=== PATIENT | male | born 1990 | race American Indian/Alaskan Native ===

== ENCOUNTER 2016-09-18 13:57 | Emergency (ER) | payer OTHER ==
[2016-09-18] MEDS ORDERED: XYLOCAINE 1% MPF 5 mL ONE (20:16)
[2016-09-18 20:22] VITALS: BP 128/91
--- NOTE | 2016-09-18 21:10 | Emergency Department Report ---
Abscess Boil HPI - HPI Chief Complaint: Skin/Abscess/Foreign Body Stated Complaint: FLU SX/PAIN UNDER RT ARM Time Seen by Provider: 09/18/16 19:53 Duration: 2 Days Location: Upper Extremity Severity: Mild History: Yes Pain, No Fever, No Purulent Drainage, No Numbness, No Foreign Body , No Previous History, No Insect Bite HPI: 26 y/o male with abscess noted to the right arm pit x 2 days Home Medications: Previous Rx's Medication Instructions Recorded Last Taken Type Cephalexin [Keflex] 500 mg PO Q12HR #14 cap 09/18/16 Unknown Rx Ibuprofen [Motrin] 800 mg PO Q8HR PRN #15 tablet 09/18/16 Unknown Rx Sulfamethoxazole/Trimethoprim 1 each PO BID #14 tablet 09/18/16 Unknown Rx [Bactrim DS TAB] Allergies/Adverse Reactions: Allergies Allergy/AdvReac Type Severity Reaction Status Date / Time shellfish derived AdvReac Unknown Verified 02/11/14 19:38 ED Review of Systems ROS: Stated complaint: FLU SX/PAIN UNDER RT ARM Other details as noted in HPI Constitutional: denies: chills, fever Eyes: denies: eye pain, eye discharge, vision change ENT: denies: ear pain, throat pain Respiratory: denies: cough, shortness of breath, wheezing Cardiovascular: denies: chest pain, palpitations Endocrine: no symptoms reported Gastrointestinal: denies: abdominal pain, nausea, diarrhea Genitourinary: denies: urgency, dysuria Musculoskeletal: denies: back pain, joint swelling, arthralgia Skin: rash (abscess to the right armpit). denies: lesions Neurological: denies: headache, weakness, paresthesias Psychiatric: denies: anxiety, depression Hematological/Lymphatic: denies: easy bleeding, easy bruising ED Past Medical Hx - Past Medical History Previous Medical History?: Yes Hx HIV: Yes - Surgical History Past Surgical History?: No - Social History Smoking Status: Current Every Day Smoker Substance Use Type: Alcohol - Medications Home Medications: Home Medications Medication Instructions Recorded Confirmed Last Taken Type Cephalexin [Keflex] 500 mg PO Q12HR #14 cap 09/18/16 Unknown Rx Ibuprofen [Motrin] 800 mg PO Q8HR PRN #15 tablet 09/18/16 Unknown Rx Sulfamethoxazole/Trimethoprim 1 each PO BID #14 tablet 09/18/16 Unknown Rx [Bactrim DS TAB] ED Abscess Boil Physical Exam - Exam General: Vital signs noted. No distress. Alert and acting appropriately. Size: 1 cm Exam: Yes Tenderness, Yes Normal Neurologic Exam, Yes Normal Circulation, No Fluctuance, No Surrounding Cellulites/Erythema, No Lymphangitis, No Crepitation , No Heart Murmur Exam: unable to I&D .no drainage after attempt I & D Note - I & D Note I & D Note: anethestic with 5ml of 1% lidocaine .no drainage from site ED Course Vital Signs 09/18/16 09/18/16 14:03 20:20 Temperature 99.1 F 99.0 F Pulse Rate 113 H 119 H Respiratory 18 20 Rate Blood Pressure 138/94 Blood Pressure 128/91 [Right] O2 Sat by Pulse 100 100 Oximetry Critical care attestation.: If time is entered above; I have spent that time in minutes in the direct care of this critically ill patient, excluding procedure time. ED Medical Decision Making - Medical Decision Making abscess to right armpit unable to I&D ED Disposition Clinical Impression: Abscess Disposition: DISCHARGED TO HOME OR SELFCARE Is pt being admited?: No Does the pt Need Aspirin: No Condition: Stable Instructions: Abscess (ED) Prescriptions: Sulfamethoxazole/Trimethoprim [Bactrim DS TAB] 1 each PO BID #14 tablet Cephalexin [Keflex] 500 mg PO Q12HR #14 cap Ibuprofen [Motrin] 800 mg PO Q8HR PRN #15 tablet PRN Reason: Pain Forms: Work/School Release Form(ED) Time of Disposition: 21:12
== END 2016-09-18 21:22 | disposition home or self-care (01) ==
LOC: ED 13:57
DX: L02.413 Cutaneous abscess of right upper limb (principal); F17.200 Nicotine dependence, unspecified, uncomplicated; Z91.013 Allergy to seafood

== ENCOUNTER 2016-09-20 18:27 | Emergency (ER) | payer SELFPAY ==
[2016-09-20 18:42] VITALS: BP 129/72
[2016-09-20] MEDS ORDERED: NORCO 5/325 ONE (22:09)
[2016-09-20] MEDS ORDERED: XYLOCAINE 1%/ EPI 1:100,000 INFILTRATI ONE (22:10)
[2016-09-20] MEDS ORDERED: NORCO 5/325 PO ONE ×2 (22:39→23:13)
[2016-09-20] MEDS ORDERED: XYLOCAINE 1%/ EPI 1:100,000 INFILTRATI NR (23:00)
--- NOTE | 2016-09-20 23:12 | Emergency Department Report ---
- General Chief complaint: Wound/Laceration Stated complaint: UNDER ARM BOIL Time Seen by Provider: 09/20/16 23:08 Source: patient Mode of arrival: Ambulatory Limitations: No Limitations - History of Present Illness Initial comments: 26-year-old HIV positive male comes back for full to his right axillary has gotten larger. Patient was seen 3 days ago and Keflex and Bactrim for boil that was under his right axillary arm.Patient reports that he has gotten larger and more painful. He denies any fever or chills denies any nausea vomiting just reports that it is very painful to put his arm down. complaint: abscess/boil - Related Data Previous Rx's Medication Instructions Recorded Last Taken Type Cephalexin [Keflex] 500 mg PO Q12HR #14 cap 09/18/16 Unknown Rx Ibuprofen [Motrin] 800 mg PO Q8HR PRN #15 tablet 09/18/16 Unknown Rx Sulfamethoxazole/Trimethoprim 1 each PO BID #14 tablet 09/18/16 Unknown Rx [Bactrim DS TAB] Allergies Allergy/AdvReac Type Severity Reaction Status Date / Time shellfish derived AdvReac Unknown Verified 02/11/14 19:38 Abscess Boil HPI - HPI Chief Complaint: Wound/Laceration Stated Complaint: UNDER ARM BOIL Time Seen by Provider: 09/20/16 23:08 Home Medications: Previous Rx's Medication Instructions Recorded Last Taken Type Cephalexin [Keflex] 500 mg PO Q12HR #14 cap 09/18/16 Unknown Rx Ibuprofen [Motrin] 800 mg PO Q8HR PRN #15 tablet 09/18/16 Unknown Rx Sulfamethoxazole/Trimethoprim 1 each PO BID #14 tablet 09/18/16 Unknown Rx [Bactrim DS TAB] Allergies/Adverse Reactions: Allergies Allergy/AdvReac Type Severity Reaction Status Date / Time shellfish derived AdvReac Unknown Verified 02/11/14 19:38 ED Review of Systems ROS: Stated complaint: UNDER ARM BOIL Other details as noted in HPI Constitutional: see HPI. denies: chills, fever Skin: lesions ED Past Medical Hx - Past Medical History Hx HIV: Yes - Social History Smoking Status: Unknown if ever smoked Substance Use Type: None - Medications Home Medications: Home Medications Medication Instructions Recorded Confirmed Last Taken Type Cephalexin [Keflex] 500 mg PO Q12HR #14 cap 01/25/17 Unknown Rx Ibuprofen [Motrin] 800 mg PO Q8HR PRN #15 tablet 09/18/16 Unknown Rx Sulfamethoxazole/Trimethoprim 1 each PO BID #14 tablet 09/18/16 Unknown Rx [Bactrim DS TAB] ED Physical Exam - General Limitations: No Limitations General appearance: alert, in no apparent distress - Head Head exam: Present: atraumatic, normocephalic - Skin Skin exam: Present: warm, dry, erythema - Expanded Skin Exam Expanded Type of lesion: Present: abscess Distribution of rash: other (right axillary) Description of rash: Present: fluctuant, indurated ED Course Vital Signs 09/20/16 18:38 Temperature 98.2 F Pulse Rate 107 H Respiratory 18 Rate Blood Pressure 129/72 O2 Sat by Pulse 100 Oximetry - I & D Right Arm Blade Size: 11 I & D Procedure: betadine prep, sterile drapes applied, sterile dressing applied , gauze wick placed Progress: Patient tolerated procedure well. ED Medical Decision Making - Medical Decision Making Patient's been evaluated by this provider. Discussed with patient that we'll need to incision and drain this abscess under his right axillary procedure was completed. Given patient a [place] prior to the procedure I will give patient a [place] 5/325 prior to discharge. Discussed with patient that he'll need to return in 48 hours to have the packing removed and repacked. Discussed the patient that he'll need to complete all antibiotics and use ibuprofen for pain patient verbalized understanding. Critical care attestation.: If time is entered above; I have spent that time in minutes in the direct care of this critically ill patient, excluding procedure time. ED Disposition Clinical Impression: Abscess Disposition: DISCHARGED TO HOME OR SELFCARE Is pt being admited?: No Does the pt Need Aspirin: No Condition: Stable Instructions: Abscess (ED) Additional Instructions: You need to complete all antibiotics as prescribed. Take ibuprofen for pain as prescribed. You need to return to the emergency room in 48 hours for repacking evaluation of the abscess. You need to return sooner if you develop fever chills the area becomes inflamed. Referrals: PRIMARY MD TATA [Primary Care Provider] - 3-5 Days MANISHA MCMANUS MD [Staff Physician] - 3-5 Days Forms: Work/School Release Form(ED)
== END 2016-09-20 23:17 | disposition home or self-care (01) ==
LOC: ED 18:27
DX: L02.411 Cutaneous abscess of right axilla (principal); Z21 Asymptomatic human immunodeficiency virus [HIV] infection status; Z91.013 Allergy to seafood

== ENCOUNTER 2016-09-22 12:36 | Emergency (ER) | payer SELFPAY ==
--- NOTE | 2016-09-22 17:03 | Emergency Department Report ---
- General Chief complaint: Skin/Abscess/Foreign Body Stated complaint: FOLLOW UP / REMOVE PACKING Time Seen by Provider: 09/22/16 16:27 Source: patient Mode of arrival: Ambulatory Limitations: No Limitations - History of Present Illness Initial comments: 6-year-old male right axillary abscess drained 2 days ago had wound packed presenting for wound check and packing removal. patient states he is taking antibiotics denies any fever or chills. Onset/Timin -: days(s) Location: RUE Severity: moderate Severity scale (0 -10): 5 Quality: aching Consistency: constant - Related Data Previous Rx's Medication Instructions Recorded Last Taken Type Cephalexin [Keflex] 500 mg PO Q12HR #14 cap 09/18/16 Unknown Rx Ibuprofen [Motrin] 800 mg PO Q8HR PRN #15 tablet 09/18/16 Unknown Rx Sulfamethoxazole/Trimethoprim 1 each PO BID #14 tablet 09/18/16 Unknown Rx [Bactrim DS TAB] Allergies Allergy/AdvReac Type Severity Reaction Status Date / Time shellfish derived AdvReac Unknown Verified 02/11/14 19:38 Abscess Boil HPI - HPI Chief Complaint: Skin/Abscess/Foreign Body Stated Complaint: FOLLOW UP / REMOVE PACKING Time Seen by Provider: 09/22/16 16:27 Home Medications: Previous Rx's Medication Instructions Recorded Last Taken Type Cephalexin [Keflex] 500 mg PO Q12HR #14 cap 09/18/16 Unknown Rx Ibuprofen [Motrin] 800 mg PO Q8HR PRN #15 tablet 09/18/16 Unknown Rx Sulfamethoxazole/Trimethoprim 1 each PO BID #14 tablet 09/18/16 Unknown Rx [Bactrim DS TAB] Allergies/Adverse Reactions: Allergies Allergy/AdvReac Type Severity Reaction Status Date / Time shellfish derived AdvReac Unknown Verified 02/11/14 19:38 ED Review of Systems ROS: Stated complaint: FOLLOW UP / REMOVE PACKING Other details as noted in HPI ED Past Medical Hx - Past Medical History Hx HIV: Yes - Social History Smoking Status: Current Every Day Smoker Substance Use Type: None - Medications Home Medications: Home Medications Medication Instructions Recorded Confirmed Last Taken Type Cephalexin [Keflex] 500 mg PO Q12HR #14 cap 09/18/16 Unknown Rx Ibuprofen [Motrin] 800 mg PO Q8HR PRN #15 tablet 09/18/16 Unknown Rx Sulfamethoxazole/Trimethoprim 1 each PO BID #14 tablet 09/18/16 Unknown Rx [Bactrim DS TAB] ED Physical Exam - General Limitations: No Limitations General appearance: alert, in no apparent distress - Head Head exam: Present: atraumatic, normocephalic - Eye Eye exam: Present: normal appearance - ENT ENT exam: Present: mucous membranes moist - Neck Neck exam: Present: normal inspection - Respiratory Respiratory exam: Present: normal lung sounds bilaterally. Absent: respiratory distress - Cardiovascular Cardiovascular Exam: Present: regular rate, normal rhythm. Absent: systolic murmur, diastolic murmur, rubs, gallop - GI/Abdominal GI/Abdominal exam: Present: soft, normal bowel sounds - Rectal Rectal exam: Present: deferred - Extremities Exam Extremities exam: Present: normal inspection - Expanded Upper Extremity Exam Right Upper Arm exam: Present: other (right axillary abscess site, iodoform gauze tube sticking out) - Back Exam Back exam: Present: normal inspection - Neurological Exam Neurological exam: Present: alert, oriented X3 - Psychiatric Psychiatric exam: Present: normal affect, normal mood - Skin Skin exam: Present: warm, dry, intact, normal color. Absent: rash ED Course Vital Signs 09/22/16 12:41 Temperature 98.7 F Pulse Rate 98 H Respiratory 18 Rate Blood Pressure 94/71 O2 Sat by Pulse 100 Oximetry ED Medical Decision Making - Medical Decision Making A/P: Wound check, packing removal 1-packing removed approximately 14 inches of packing. Wound site clean, minimal purulent drainage, no evidence of cellulitis. Area soft to touch minimal to no induration 2-advised patient only to return to the ED if he experiences reaccumulation of abscess, fever or chills, heavy bleeding from site. 3-patient states he is taking his antibiotics. Critical care attestation.: If time is entered above; I have spent that time in minutes in the direct care of this critically ill patient, excluding procedure time. ED Disposition Clinical Impression: Visit for wound check Disposition: DISCHARGED TO HOME OR SELFCARE Is pt being admited?: No Does the pt Need Aspirin: No Condition: Stable Instructions: Acute Wound Care (ED), Incision and Drainage (ED) Forms: Work/School Release Form(ED) Time of Disposition: 17:02
[2016-09-22 17:21] VITALS: BP 117/69
== END 2016-09-22 17:19 | disposition home or self-care (01) ==
LOC: ED 12:36
DX: Z48.02 Encounter for removal of sutures (principal); Z21 Asymptomatic human immunodeficiency virus [HIV] infection status; F17.200 Nicotine dependence, unspecified, uncomplicated; Z91.013 Allergy to seafood

== ENCOUNTER 2016-12-04 05:55 | Emergency (ER) | payer SELFPAY ==
--- NOTE | 2016-12-04 07:51 | Emergency Department Report ---
HPI - General Chief Complaint: Upper Respiratory Infection Time Seen by Provider: 12/04/16 07:37 - HPI HPI: Patient here reports that he's been having cough and nasal congestion and now with coughing or chest congestion. Denies any shortness of breath or chest pain. He is HIV positive and did not have a ID specialist. He used to go to [facility] but he hasn't gone for a while and he stopped taking medication and that they give to him because was making him sick. Denies any nausea vomiting or fever or chills. He said he is having generalized body aches at 7 out of 10 she said he's been trying [id number] medication but is not helping. He also reports headache at 3 out of 10 that comes and goes. ED Past Medical Hx - Past Medical History Previous Medical History?: Yes Hx HIV: Yes - Surgical History Past Surgical History?: No - Family History Family history: hypertension - Social History Smoking Status: Former Smoker Substance Use Type: None - Medications Home Medications: Home Medications Medication Instructions Recorded Confirmed Last Taken Type Albuterol Sulfate [Ventolin HFA] 2 puff IH Q4H PRN #1 hfa.aer.ad 12/04/16 Unknown Rx Cetirizine HCl [ZyrTEC] 10 mg PO QDAY #14 capsule 12/04/16 Unknown Rx Fluticasone [Flonase] 1 spray NS QDAY #1 bottle 12/04/16 Unknown Rx Levofloxacin [Levaquin] 750 mg PO QDAY #10 tablet 12/04/16 Unknown Rx guaiFENesin DM [Robitussin Dm] 10 ml PO Q6HR PRN #200 udc 12/04/16 Unknown Rx ED Review of Systems ROS: Stated complaint: CHEST PAIN/FLU SYM Other details as noted in HPI Comment: All other systems reviewed and negative Constitutional: chills. denies: weakness Eyes: denies: eye discharge ENT: congestion. denies: ear pain, throat pain Respiratory: cough. denies: shortness of breath, SOB with exertion, SOB at rest , stridor, wheezing Cardiovascular: denies: chest pain, palpitations, edema, syncope Gastrointestinal: denies: nausea, vomiting Musculoskeletal: myalgia. denies: back pain Skin: denies: rash Neurological: headache. denies: numbness, paresthesias, confusion, abnormal gait, vertigo Physical Exam - Physical Exam Vital Signs: Vital Signs 12/04/16 06:01 Temperature 98.7 F Pulse Rate 105 H Respiratory 18 Rate Blood Pressure 135/80 O2 Sat by Pulse 99 Oximetry Vital Signs 12/04/16 12/04/16 12/04/16 06:01 08:12 08:25 Temperature 98.7 F Pulse Rate 105 H Pulse Rate [ 103 H 106 H Posterior Bilateral Throughout] Respiratory 18 Rate Respiratory 18 18 Rate [Posterior Bilateral Throughout] Blood Pressure 135/80 Blood Pressure [Left] O2 Sat by Pulse 99 Oximetry 12/04/16 12/04/16 12/04/16 08:27 10:15 10:33 Temperature Pulse Rate 82 99 H Pulse Rate [ Posterior Bilateral Throughout] Respiratory 18 22 Rate Respiratory Rate [Posterior Bilateral Throughout] Blood Pressure Blood Pressure 128/81 [Left] O2 Sat by Pulse 97 98 Oximetry General: This is a 26-year-old male well-nourished well-developed in no acute distress and nontoxic in appearance Physical Exam: Head: Normocephalic atraumatic Mouth: Moist, no pharyngeal exudate or erythema. Uvula is midline and oral airway is patent. No facial swelling. No peritonsillar abscesses. Nose: Congested with erythema to mucosa. Clear Drainage. Maxillary and frontal sinuses nontender to palpate Neck: Supple, no C-spine tenderness, no tracheal deviation. Nontender to palpate. no adenopathy Ears: Bilateral TMs congested without erythema. Bilateral EAC without any redness swelling or drainage. Abdomen: Soft, nontender to palpate in all quadrants, normal bowel sounds in all quadrant and negative CVA tenderness bilaterally. Eyes: Bilateral pupils equal and reactive to light, bilateral EOM intact. Bilateral sclera and conjunctiva without injection. Normal accommodation. No Lungs: Clear to auscultate bilaterally no rhonchi wheezes or rales. Normal work of breathing . No use of accessory muscle extremity; No CCE. +2 pulses. No neurovascular compromise Cardiovascular: S1-S2, tachycardia @ 105 ,regular rhythm. No murmurs. Skin: clean Dry and intact no rash no lesions Psych: Normal mood and behavior ED Course Vital Signs 12/04/16 06:01 Temperature 98.7 F Pulse Rate 105 H Respiratory 18 Rate Blood Pressure 135/80 O2 Sat by Pulse 99 Oximetry Vital Signs 12/04/16 12/04/16 12/04/16 06:01 08:12 08:25 Temperature 98.7 F Pulse Rate 105 H Pulse Rate [ 103 H 106 H Posterior Bilateral Throughout] Respiratory 18 Rate Respiratory 18 18 Rate [Posterior Bilateral Throughout] Blood Pressure 135/80 O2 Sat by Pulse 99 Oximetry 12/04/16 08:27 Temperature Pulse Rate 82 Pulse Rate [ Posterior Bilateral Throughout] Respiratory Rate Respiratory Rate [Posterior Bilateral Throughout] Blood Pressure O2 Sat by Pulse Oximetry - Reevaluation(s) Reevaluation #1: 12/04/16 09:47 Patient stable throughout ED course. He received soft and 3.375 g IV in 1 L of IV fluid. Lab work. Chest x-ray revealed patient has early lingular pna. He received Xopenex and Atrovent nebulizer treatment in emergency room. ED Medical Decision Making - Lab Data Result diagrams: 12/04/16 08:38 12/04/16 08:38 Lab Results 12/04/16 12/04/16 12/04/16 Range/Units 08:38 08:38 08:38 WBC 14.6 H (4.5-11.0) K/mm3 RBC 5.11 H (3.65-5.03) M/mm3 Hgb 13.3 (11.8-15.2) gm/dl Hct 40.7 (35.5-45.6) % MCV 80 L (84-94) fl MCH 26 L (28-32) pg MCHC 33 (32-34) % RDW 15.9 H (13.2-15.2) % Plt Count 220 (140-440) K/mm3 Lymph # Information Services Manager Sodium 132 L (137-145) mmol/L Potassium 4.3 (3.6-5.0) mmol/L Chloride 96.2 L (98-107) mmol/L Carbon Dioxide 23 (22-30) mmol/L Anion Gap 17 mmol/L BUN 12 (9-20) mg/dL Creatinine 0.8 (0.8-1.5) mg/dL Estimated GFR > 60 ml/min BUN/Creatinine Ratio 15.00 % Glucose 97 (75-100) mg/dL Lactic Acid 1.4 (0.7-2.0) mmol/L Calcium 9.3 (8.4-10.2) mg/dL Total Bilirubin 0.7 (0.1-1.2) mg/dL AST 21 (5-40) units/L ALT 11 (7-56) units/L Alkaline Phosphatase 60 (35-129) units/L Total Protein 10.3 H (6.3-8.2) g/dL Albumin 3.8 L (3.9-5) g/dL Albumin/Globulin Ratio 0.6 % Blood culture and differential is pending - Radiology Data Radiology results: report reviewed Chest x-ray revealed early lingular pneumonia - Medical Decision Making I collaborated with on patient complains, clinical findings along with diagnostic and laboratory results. It was titrated the patient can be discharged home on medication. Patient white count is 14.6 otherwise CBC within normal limits and CMP is stable. Lactic acid 1.4. ED course: Patient with early lingular pneumonia and he is HIV positive. He does not have a fever and his heart rate stabilized. She does not have a doctor he. He said he used to go to [facility] on [address] but the medication was making him feel bad so he didn't go back. He reports that he has to get reestablished at the clinic and also apply for insurance. I discussed with patient diagnosis and treatment plan any voice understanding. Symptoms started off with upper respiratory and evolved into pneumonia. Patient was given Xopenex 1.25 mg and Atrovent 0.5 mg nebulizer treatment in emergency room. He was also given 1 L of IV fluid along with Zosyn 3.375 g in ED. Tolerated well and tolerating oral liquids well. Discharged home with his family with instructions to follow-up in 2-3 days or to return to the emergency room if he is not feeling better. Critical care attestation.: If time is entered above; I have spent that time in minutes in the direct care of this critically ill patient, excluding procedure time. ED Disposition Clinical Impression: Lingular pneumonia, HIV disease, Cough, Common cold Disposition: DISCHARGED TO HOME OR SELFCARE Is pt being admited?: No Does the pt Need Aspirin: No Condition: Stable Instructions: Cold Symptoms (ED), Pneumonia (ED), Acute Cough (ED) Additional Instructions: Please follow up at this outside Medical Center in one to 2 days for follow-up pneumonia. Please call [facility] as he has been there in the past to schedule appointment for follow-up HIV. Please take all medication as prescribed. Please return to the emergency room if he developed increased coughing, shortness of breath, fever, nausea vomiting, chest pain or increased heart rate. Prescriptions: Albuterol Sulfate [Ventolin HFA] 2 puff IH Q4H PRN #1 hfa.aer.ad PRN Reason: Cough Cetirizine HCl [ZyrTEC] 10 mg PO QDAY #14 capsule Fluticasone [Flonase] 1 spray NS QDAY #1 bottle guaiFENesin DM [Robitussin Dm] 10 ml PO Q6HR PRN #200 udc PRN Reason: Cough Levofloxacin [Levaquin] 750 mg PO QDAY #10 tablet Referrals: PRIMARY CARE, [Primary Care Provider] - 3-5 Days Forms: Accompanied Note, Work/School Release Form(ED)
[2016-12-04] MEDS ORDERED: XOPENEX IH ONE (07:53)
[2016-12-04] MEDS ORDERED: ATROVENT IH ONE (07:53)
--- NOTE | 2016-12-04 08:20 | XRay Report ---
ROUTINE CHEST, TWO VIEWS: HISTORY: Cough. There is a small infiltrate in the lingular region which could represent early pneumonia. The remainder of the lungs are clear. Normal heart and mediastinal structures. Normal bony thorax. IMPRESSION: Early lingular pneumonia.
[2016-12-04] MEDS ORDERED: ZOSYN/NS 3.375GM/50ML 3.375 GM/50 ML BAG IV SCH (09:00)
[2016-12-04 09:32] LABS: Hematocrit 40.7 % (35.5-45.6); Hemoglobin 13.3 gm/dl (11.8-15.2); Mean Corpuscular HGB Conc 33 % (32-34); Mean Corpuscular Hemoglobin 26 pg (28-32); Mean Corpuscular Volume 80 fl (84-94); Platelet Count 220 K/mm3 (140-440); Red Blood Count 5.11 M/mm3 (3.65-5.03); Red Cell Distribution Width 15.9 % (13.2-15.2); White Blood Count 14.6 K/mm3 (4.5-11.0)
[2016-12-04 09:53] LABS: Alanine Aminotransferase 11 units/L (7-56); Albumin 3.8 g/dL (3.9-5); Albumin/Globulin Ratio 0.6 %; Alkaline Phosphatase 60 units/L (35-129); Anion Gap 17 mmol/L; Bilirubin,Total 0.7 mg/dL (0.1-1.2); Blood Urea Nitrogen 12 mg/dL (9-20); Calcium 9.3 mg/dL (8.4-10.2); Carbon Dioxide 23 mmol/L (22-30); Chloride 96.2 mmol/L (98-107); Glucose 97 mg/dL (75-100); Potassium 4.3 mmol/L (3.6-5.0); Sodium 132 mmol/L (137-145); Total Protein 10.3 g/dL (6.3-8.2)
[2016-12-04 10:16] VITALS: BP 128/81
[2016-12-04 10:16] LABS: Blastocytes % (Manual) 0 %
[2016-12-04 10:17] LABS: Basophils % (Manual) 0 % (0.0-1.8); Eosinophils % (Manual) 0 % (0.0-4.3)
[2016-12-04 10:21] LABS: Diff Status Complete; RBC Morphology Normal
[2016-12-04 10:27] LABS: Bilirubin,Direct < 0.2 mg/dL (0-0.2)
== END 2016-12-04 10:30 | disposition home or self-care (01) ==
LOC: ED 05:55
DX: J18.1 Lobar pneumonia, unspecified organism (principal); R05 Cough; J00 Acute nasopharyngitis [common cold]; Z21 Asymptomatic human immunodeficiency virus [HIV] infection status; Z87.891 Personal history of nicotine dependence; Z91.013 Allergy to seafood
CPT/HCPCS: 36415; 71020; 80048; 80074; 82140; 85007; 85025; 87040; 94640; 96365; 99284; J2543

== ENCOUNTER 2016-12-12 09:27 | Emergency (ER) | payer SELFPAY ==
--- NOTE | 2016-12-12 12:45 | Emergency Department Report ---
Entered by ALLY WANG, acting as scribe for DEAN GAITAN PA. - General Chief Complaint: Upper Respiratory Infection Stated Complaint: PNEUMONIA FOLLOW UP Time Seen by Provider: 12/12/16 12:14 Source: patient Mode of arrival: Ambulatory Limitations: No Limitations - History of Present Illness Initial Comments: 26 year old male with a PMHx of HIV presents to the ED c/o a cough with clear sputum for 2 weeks. Patient notes that he was seen in this ED for flu symptoms on 12/04/2016 and diagnosed with pneumonia. He was prescribed Levaquin antibiotics x 10 day course with moderate relief of symptoms. Notes taking Robitussin for cough with mild relief. He denies night sweats, chest pain, SOB, fever, chills, nausea, and vomiting. Patient notes that he hasn't been compliant with HIV retro-virals for about 9 months. When I asked the patient why he states he electively discontinued the HAART medicines because they made him feel nauseous. Patient is aware that he should be on his medicines and I reinforced this during the discussion. Patient is awake alert and oriented 3 does not appear to be in acute distress no audible wheezing or stridor on exam. Consumes EtOH socially. Allergic to shellfish. MD Complaint: cough (with clear sputum) Onset/Timin -: week(s) Severity: moderate Consistency: constant Improves With: other (levaquin antibiotics) Context: other (diagnosed with pneumonia 12/04/2016) Associated Symptoms: denies other symptoms, sore throat, cough (with clear sputum). denies: fever, chills, headache, rhinorrhea, nasal congestion, chest pain, nausea, vomiting, rash, other (night sweats) Treatments Prior to Arrival: "cold medicine" (Robitussin), other (Levaquin antibiotics) - Related Data Previous Rx's Medication Instructions Recorded Last Taken Type Albuterol Sulfate [Ventolin HFA] 2 puff IH Q4H PRN #1 hfa.aer.ad 12/04/16 Unknown Rx Cetirizine HCl [ZyrTEC] 10 mg PO QDAY #14 capsule 12/04/16 Unknown Rx Fluticasone [Flonase] 1 spray NS QDAY #1 bottle 12/04/16 Unknown Rx Levofloxacin [Levaquin] 750 mg PO QDAY #10 tablet 12/04/16 Unknown Rx guaiFENesin DM [Robitussin Dm] 10 ml PO Q6HR PRN #200 udc 12/04/16 Unknown Rx Allergies Allergy/AdvReac Type Severity Reaction Status Date / Time shellfish derived AdvReac Unknown Verified 02/11/14 19:38 ED Review of Systems Comment: All other systems reviewed and negative Constitutional: other (mild dizziness). denies: chills, fever, weakness ENT: throat pain Respiratory: cough (with clear sputum). denies: orthopnea, shortness of breath , SOB with exertion, SOB at rest Cardiovascular: denies: chest pain, dyspnea on exertion, orthopnea Endocrine: denies: other (night sweats) Gastrointestinal: denies: nausea, vomiting Skin: denies: rash Neurological: denies: headache, numbness ED Past Medical Hx - Past Medical History Previous Medical History?: Yes Hx HIV: Yes - Surgical History Past Surgical History?: No - Social History Smoking Status: Current Every Day Smoker - Medications Home Medications: Home Medications Medication Instructions Recorded Confirmed Last Taken Type Albuterol Sulfate [Ventolin HFA] 2 puff IH Q4H PRN #1 hfa.aer.ad 12/04/16 Unknown Rx Cetirizine HCl [ZyrTEC] 10 mg PO QDAY #14 capsule 12/04/16 Unknown Rx Fluticasone [Flonase] 1 spray NS QDAY #1 bottle 12/04/16 Unknown Rx Levofloxacin [Levaquin] 750 mg PO QDAY #10 tablet 12/04/16 Unknown Rx guaiFENesin DM [Robitussin Dm] 10 ml PO Q6HR PRN #200 udc 12/04/16 Unknown Rx ED Physical Exam - General Limitations: No Limitations General appearance: alert, in no apparent distress - Head Head exam: Present: atraumatic, normocephalic - Eye Eye exam: Present: normal appearance, EOMI Pupils: Present: normal accommodation - ENT ENT exam: Present: normal exam, mucous membranes moist - Neck Neck exam: Present: normal inspection, full ROM. Absent: tenderness, lymphadenopathy - Respiratory Respiratory exam: Present: normal lung sounds bilaterally. Absent: respiratory distress, wheezes, rales, rhonchi, stridor - Cardiovascular Cardiovascular Exam: Present: regular rate, normal rhythm. Absent: systolic murmur, diastolic murmur, rubs, gallop - GI/Abdominal GI/Abdominal exam: Present: soft. Absent: tenderness, guarding, rebound, rigid - Extremities Exam Extremities exam: Present: normal inspection, full ROM. Absent: tenderness - Back Exam Back exam: Present: normal inspection, full ROM. Absent: tenderness - Neurological Exam Neurological exam: Present: alert, oriented X3 - Psychiatric Psychiatric exam: Present: normal affect, normal mood - Skin Skin exam: Present: warm, dry, intact. Absent: rash ED Course Vital Signs 12/12/16 10:18 Temperature 98.7 F Pulse Rate 90 Respiratory 18 Rate Blood Pressure 116/77 O2 Sat by Pulse 94 Oximetry ED Medical Decision Making - Medical Decision Making A/P: Worried well visit, visit for follow-up status post pneumonia diagnosis 1-patient has significantly improved clinically no longer reporting any significant shortness of breath fevers chills. No signs of respiratory distress oxygen saturation 100% on room air. I advised patient to use his albuterol and Robitussin for symptomatic relief. Lungs are clear to auscultation bilaterally on clinical exam no overt signs of persistent pneumonia. 2-I stressed to the patient the importance of following up with primary care and to restart his HIV medicines, patient states that he followed up at [facility], I will provide patient with directions and phone number so that he can follow-up on an outpatient basis 3-I will refer patient to primary care 4-no indication for continued antibiotics, vital signs stable and patient has clinically improved significantly ED Disposition Clinical Impression: Follow up, Physically well but worried, HIV disease, Cough Disposition: DISCHARGED TO HOME OR SELFCARE Is pt being admited?: No Does the pt Need Aspirin: No Condition: Stable Instructions: Human Immunodeficiency Virus Infection (ED) Additional Instructions: [email or web address] Referrals: FAVIO ANDREA MD [Staff Physician] - 3-5 Days [facility] [Provider Group] - 3-5 Days [facility] [Outside] - 3-[address] [facility] [Outside] - 3-5 Days Forms: Accompanied Note, Work/School Release Form(ED) Time of Disposition: 12:42 This documentation as recorded by the KATHLEEN raygoza JASMINE,accurately reflects the service I personally performed and the decisions made by ,DEAN GAITAN PA.
[2016-12-12 12:52] VITALS: BP 127/88
== END 2016-12-12 12:45 | disposition home or self-care (01) ==
LOC: ED 09:27
DX: B20 Human immunodeficiency virus [HIV] disease (principal); R05 Cough; F17.200 Nicotine dependence, unspecified, uncomplicated; Z91.013 Allergy to seafood
CPT/HCPCS: 99281

== ENCOUNTER 2016-12-20 12:15 | Emergency (ER) | payer SELFPAY ==
[2016-12-20 13:00] VITALS: BP 122/80
[2016-12-20] MEDS ORDERED: NORCO 5/325 PO ONE (14:10)
[2016-12-20] MEDS ORDERED: BACTRIM DS PO ONE (14:10)
--- NOTE | 2016-12-20 14:14 | Emergency Department Report ---
Abscess Boil HPI - HPI Chief Complaint: Skin/Abscess/Foreign Body Stated Complaint: ABCESS Time Seen by Provider: 12/20/16 13:44 Duration: 1 Week Location: Other History: Yes Pain, Yes Purulent Drainage, No Fever, No Numbness, No Foreign Body , No Previous History, No Insect Bite HPI: Patient is a 26-year-old male presents to ED complaining of left groin pain 1 week. Patient states about a week ago he sound he had a small bump on his left groin area. Patient states 3 days ago he shaved and the bump got bigger and worse and more painful to touch. Patient states yesterday he started to training drain yellowish pus. Patient states he took a Epson salt that maybe the bit better. She denies fever/chills/nausea/vomiting/scrotum pain /penile pain suspect penile discharge pain with urination or any other problems Home Medications: Previous Rx's Medication Instructions Recorded Last Taken Type Albuterol Sulfate [Ventolin HFA] 2 puff IH Q4H PRN #1 hfa.aer.ad 12/04/16 Unknown Rx Cetirizine HCl [ZyrTEC] 10 mg PO QDAY #14 capsule 12/04/16 Unknown Rx Fluticasone [Flonase] 1 spray NS QDAY #1 bottle 12/04/16 Unknown Rx Levofloxacin [Levaquin] 750 mg PO QDAY #10 tablet 12/04/16 Unknown Rx guaiFENesin DM [Robitussin Dm] 10 ml PO Q6HR PRN #200 udc 12/04/16 Unknown Rx Ibuprofen [Motrin] 800 mg PO Q8HR PRN #30 tablet 12/20/16 Unknown Rx Sulfamethoxazole/Trimethoprim 1 each PO BID #20 tablet 12/20/16 Unknown Rx [Bactrim DS TAB] Allergies/Adverse Reactions: Allergies Allergy/AdvReac Type Severity Reaction Status Date / Time shellfish derived AdvReac Unknown Verified 02/11/14 19:38 ED Review of Systems ROS: Stated complaint: ABCESS Other details as noted in HPI Constitutional: denies: chills, fever Eyes: denies: eye pain, eye discharge, vision change ENT: denies: ear pain, throat pain Respiratory: denies: cough, shortness of breath, wheezing Cardiovascular: denies: chest pain, palpitations Endocrine: no symptoms reported Gastrointestinal: denies: abdominal pain, nausea, diarrhea Genitourinary: denies: urgency, dysuria Musculoskeletal: denies: back pain, joint swelling, arthralgia Skin: denies: rash, lesions Neurological: denies: headache, weakness, paresthesias Psychiatric: denies: anxiety, depression Hematological/Lymphatic: denies: easy bleeding, easy bruising ED Past Medical Hx - Past Medical History Previous Medical History?: Yes Hx HIV: Yes - Surgical History Past Surgical History?: No - Social History Smoking Status: Never Smoker Substance Use Type: Alcohol - Medications Home Medications: Home Medications Medication Instructions Recorded Confirmed Last Taken Type Albuterol Sulfate [Ventolin HFA] 2 puff IH Q4H PRN #1 hfa.aer.ad 12/04/16 Unknown Rx Cetirizine HCl [ZyrTEC] 10 mg PO QDAY #14 capsule 12/04/16 Unknown Rx Fluticasone [Flonase] 1 spray NS QDAY #1 bottle 12/04/16 Unknown Rx Levofloxacin [Levaquin] 750 mg PO QDAY #10 tablet 12/04/16 Unknown Rx guaiFENesin DM [Robitussin Dm] 10 ml PO Q6HR PRN #200 udc 12/04/16 Unknown Rx Ibuprofen [Motrin] 800 mg PO Q8HR PRN #30 tablet 12/20/16 Unknown Rx Sulfamethoxazole/Trimethoprim 1 each PO BID #20 tablet 12/20/16 Unknown Rx [Bactrim DS TAB] ED Abscess Boil Physical Exam - Exam General: Vital signs noted. No distress. Alert and acting appropriately. Size: 3 cm Exam: Yes Tenderness, Yes Fluctuance, Yes Normal Neurologic Exam, Yes Normal Circulation, No Surrounding Cellulites/Erythema, No Lymphangitis, No Crepitation , No Heart Murmur Exam: 3 cm lobulated flatulent tender abscess on left groin region. I & D Note - I & D Note I & D Note: Patient positioned appropriately, 15cc lidocaine with/without epinephrine was used as a local anesthetic. #11 blade scalpal used for single incision. Additional local anesthetic injected into surrounding viable tissue prior to blunt dissection of loculated adhesions. Copius drainage of pus . Wound packed with iodoform gauze. Procedure tolerated without complications. Wound dressed with sterile 4x4 guaze and paper tape. Pt tolerated procedure well. ED Course Vital Signs 12/20/16 12:58 Temperature 98.9 F Pulse Rate 103 H Respiratory 18 Rate Blood Pressure 122/80 O2 Sat by Pulse 97 Oximetry Critical care attestation.: If time is entered above; I have spent that time in minutes in the direct care of this critically ill patient, excluding procedure time. ED Medical Decision Making - Medical Decision Making 26-year-old male presents today with a groin abscess ED course: Patient received 2 tablets of [place] and Bactrim Discussed with patient to return to ED in 2 days for wound check . Discussed the patient and take antibiotics as prescribed Vital signs are normal patient is in no acute respiratory distress. Discussed the patient follow up with primary care physician in 3-5 days ED Disposition Clinical Impression: Carbuncle and furuncle, Folliculitis, Abscess, Abscess of groin, left Disposition: DISCHARGED TO HOME OR SELFCARE Is pt being admited?: No Does the pt Need Aspirin: No Condition: Stable Instructions: Cellulitis (ED), Folliculitis (ED), Abscess (ED) Prescriptions: Ibuprofen [Motrin] 800 mg PO Q8HR PRN #30 tablet PRN Reason: Pain Sulfamethoxazole/Trimethoprim [Bactrim DS TAB] 1 each PO BID #20 tablet Referrals: PRIMARY CARE, [Primary Care Provider] - 3-5 Days Forms: Accompanied Note, Work/School Release Form(ED) Time of Disposition: 15:40
== END 2016-12-20 15:34 | disposition home or self-care (01) ==
LOC: ED 12:15
DX: L02.214 Cutaneous abscess of groin (principal); L73.9 Follicular disorder, unspecified; L02.93 Carbuncle, unspecified; L02.92 Furuncle, unspecified; Z91.013 Allergy to seafood

== ENCOUNTER 2016-12-23 15:40 | Emergency (ER) | payer SELFPAY ==
--- NOTE | 2016-12-23 20:15 | Emergency Department Report ---
ED Medical Clearance HPI - General Chief complaint: Medical Clearance Stated complaint: FOLLOW UP/ABSCESS Time Seen by Provider: 12/23/16 19:45 Source: patient Mode of arrival: Ambulatory - History of Present Illness Initial comments: This is a 26-year-old male that presents with removal and reassessment of the left groin abscess that was here 3 days ago for I/D at [facility]. Patient denies any swelling or grown pain. Based denies any scrotal pain, tenderness, penile discharge, penile pain. Patient stated this isn't HIV positive for 2 years but does not know his CD4 count. Patient stated it is gone back to treatment next week to do labs and treatment plan. Patient denies shortness of breath, chest pain, no notes or tingling sensation extremities. Patient denies any fever. Patient denies any toxic or ill in appearance. No signs of distress noted. -: Gradual, days(s) (3) Reason for Medical Clearance: other (I/D packing removed) Compliant with Home Medications: Yes (Bactrim) Traumatic Symptoms: denies traumatic injury Associated Symptoms: denies other symptoms. denies: chest pain, shortness of breath, palpitations, diaphoresis, confusion, cough, fever/chills, headaches, anorexia, malaise, nausea/vomiting, rash, seizure, syncope, weakness Treatments Prior to Arrival: other (Bactrim) Home medications: Previous Rx's Medication Instructions Recorded Last Taken Type Albuterol Sulfate [Ventolin HFA] 2 puff IH Q4H PRN #1 hfa.aer.ad 12/04/16 Unknown Rx Cetirizine HCl [ZyrTEC] 10 mg PO QDAY #14 capsule 12/04/16 Unknown Rx Fluticasone [Flonase] 1 spray NS QDAY #1 bottle 12/04/16 Unknown Rx Levofloxacin [Levaquin] 750 mg PO QDAY #10 tablet 12/04/16 Unknown Rx guaiFENesin DM [Robitussin Dm] 10 ml PO Q6HR PRN #200 udc 12/04/16 Unknown Rx Ibuprofen [Motrin] 800 mg PO Q8HR PRN #30 tablet 12/20/16 Unknown Rx Sulfamethoxazole/Trimethoprim 1 each PO BID #20 tablet 12/20/16 Unknown Rx [Bactrim DS TAB] Allergies/Adverse reactions: Allergies Allergy/AdvReac Type Severity Reaction Status Date / Time shellfish derived AdvReac Unknown Verified 02/11/14 19:38 ED Review of Systems ROS: Stated complaint: FOLLOW UP/ABSCESS Other details as noted in HPI Constitutional: denies: chills, fever Eyes: denies: eye pain, eye discharge, vision change ENT: denies: ear pain, throat pain Respiratory: denies: cough, shortness of breath, wheezing Cardiovascular: denies: chest pain, palpitations Endocrine: no symptoms reported Gastrointestinal: denies: abdominal pain, nausea, diarrhea Genitourinary: denies: urgency, dysuria Musculoskeletal: denies: back pain, joint swelling, arthralgia Skin: denies: rash, lesions Neurological: denies: headache, weakness, paresthesias Psychiatric: denies: anxiety, depression Hematological/Lymphatic: denies: easy bleeding, easy bruising ED Past Medical Hx - Past Medical History Hx HIV: Yes - Social History Smoking Status: Never Smoker Substance Use Type: Alcohol - Medications Home Medications: Home Medications Medication Instructions Recorded Confirmed Last Taken Type Albuterol Sulfate [Ventolin HFA] 2 puff IH Q4H PRN #1 hfa.aer.ad 12/04/16 Unknown Rx Cetirizine HCl [ZyrTEC] 10 mg PO QDAY #14 capsule 12/04/16 Unknown Rx Fluticasone [Flonase] 1 spray NS QDAY #1 bottle 12/04/16 Unknown Rx Levofloxacin [Levaquin] 750 mg PO QDAY #10 tablet 12/04/16 Unknown Rx guaiFENesin DM [Robitussin Dm] 10 ml PO Q6HR PRN #200 udc 12/04/16 Unknown Rx Ibuprofen [Motrin] 800 mg PO Q8HR PRN #30 tablet 12/20/16 Unknown Rx Sulfamethoxazole/Trimethoprim 1 each PO BID #20 tablet 12/20/16 Unknown Rx [Bactrim DS TAB] ED Physical Exam - General Limitations: No Limitations General appearance: alert, in no apparent distress - Head Head exam: Present: atraumatic, normocephalic - Eye Eye exam: Present: normal appearance - ENT ENT exam: Present: mucous membranes moist - Neck Neck exam: Present: normal inspection - Respiratory Respiratory exam: Present: normal lung sounds bilaterally. Absent: respiratory distress - Cardiovascular Cardiovascular Exam: Present: regular rate, normal rhythm. Absent: systolic murmur, diastolic murmur, rubs, gallop - GI/Abdominal GI/Abdominal exam: Present: soft, normal bowel sounds - Rectal Rectal exam: Present: deferred - exam: Present: normal inspection External exam: Present: normal external exam. Absent: erythema, swelling, lesions, lacerations, ecchymosis, bleeding - Extremities Exam Extremities exam: Present: normal inspection - Back Exam Back exam: Present: normal inspection - Neurological Exam Neurological exam: Present: alert, oriented X3, CN II-XII intact, normal gait - Psychiatric Psychiatric exam: Present: normal affect, normal mood - Skin Skin exam: Present: warm, dry, intact, normal color. Absent: rash - Other Other exam information: 1 cm I/D to left groin area. No erythema. No pus. No drainage. No bleeding. No scrotal tenderness. No penile discharge. No penile lesions. ED Course Vital Signs 12/23/16 12/23/16 16:25 19:18 Temperature 98.9 F Pulse Rate 85 88 Respiratory 16 18 Rate Blood Pressure 116/80 Blood Pressure 128/66 [Left] O2 Sat by Pulse 100 98 Oximetry ED Medical Decision Making - Medical Decision Making Ed course: 26-year-old male that presents with removal and reassessment of left groin abscess that was I&D degrees ago. 1- patient denies any fever or chills. Area looks clean with no pus or drainage noted. No erythema noted. No swelling. 2- I instructed the patient to apply warm compressors throughout the day. 3- I also instructed the patient to continue taking Bactrim as prescribed. 4- I also instructed the patient to wash area with soap and water. 5- at the time of discharge the patient does not seem toxic or ill in appearance. No signs of any distress noted. Patient agrees to discharge plan. No further questions noted by the patient. 6- sterile 4 x 4 dressing with tape applied to the area. Patient was instructed to remove tonight and wash with soap and water. ED Disposition Clinical Impression: Abscess packing removal Disposition: DISCHARGED TO HOME OR SELFCARE Is pt being admited?: No Does the pt Need Aspirin: No Condition: Stable Instructions: Acute Wound Care (ED), Incision and Drainage (ED) Additional Instructions: Please follow up with her primary care doctor in 3-5 days. Symptoms worsen such as swelling, pus, drainage, reports emergency room. Take full course of antibiotics as prescribed. Referrals: PRIMARY CARE, [Primary Care Provider] - 3-5 Days
[2016-12-23 22:14] VITALS: BP 118/81
== END 2016-12-23 22:12 | disposition home or self-care (01) ==
LOC: ED 15:40
DX: Z48.01 Encounter for change or removal of surgical wound dressing (principal); Z91.013 Allergy to seafood

== ENCOUNTER 2021-06-12 21:53 | Emergency (ER) | payer BC ==
[2021-06-12] MEDS ORDERED: SODIUM CHLORIDE 0.9% 1000 ML 1,000 ML IV ONE (22:29)
[2021-06-12] MEDS ORDERED: HYOSCYAMINE SUBL 0.125 MG TAB SL ONE (22:29)
--- NOTE | 2021-06-12 22:32 | Emergency Department Report ---
ED General Adult HPI - General Chief complaint: Nausea/Vomiting/Diarrhea Stated complaint: DIARRHEA POSS FOOD POISION Time Seen by Provider: 06/12/21 22:20 Source: patient Mode of arrival: Ambulatory Limitations: No Limitations - History of Present Illness Initial comments: 30-year-old male patient with history of HIV presents to the emergency departmen t with complaints of progressively worsening diarrhea with associated nausea for 2 days. No known sick contacts. No current steroid use. No recent travel. Patient states he recently completed a course of antibiotics for strep throat. Patient did not take any jhhw-qwt-vaxizam medications. Patient is unsure of his last CD4 count but states he is compliant with his Biktarvy. No history of prio r abdominal surgeries. Denies fever, chills, abdominal pain, vomiting, rectal bleeding, melena. Denies all other complaints at this time. - Related Data Previous Rx's Medication Instructions Recorded Last Taken Type Albuterol Sulfate [Ventolin HFA] 2 puff IH Q4H PRN #1 hfa.aer.ad 12/04/16 Unknown Rx Cetirizine HCl [ZyrTEC] 10 mg PO QDAY #14 capsule 12/04/16 Unknown Rx Fluticasone [Flonase] 1 spray NS QDAY #1 bottle 12/04/16 Unknown Rx guaiFENesin DM [Robitussin Dm] 10 ml PO Q6HR PRN #200 udc 12/04/16 Unknown Rx levoFLOXacin [Levaquin] 750 mg PO QDAY #10 tablet 12/04/16 Unknown Rx Ibuprofen [Motrin] 800 mg PO Q8HR PRN #30 tablet 12/20/16 Unknown Rx Sulfamethoxazole/Trimethoprim 1 each PO BID #20 tablet 12/20/16 Unknown Rx [Bactrim DS TAB] Dicyclomine [Bentyl] 20 mg PO QID #20 tablet 06/13/21 Unknown Rx Ondansetron [Zofran Odt] 4 mg PO Q4H #20 tab.rapdis 06/13/21 Unknown Rx metroNIDAZOLE [Flagyl] 500 mg PO Q8HR 10 Days tablet 06/13/21 Unknown Rx Allergies Allergy/AdvReac Type Severity Reaction Status Date / Time shellfish derived AdvReac Unknown Verified 02/11/14 19:38 ED Review of Systems ROS: Stated complaint: DIARRHEA POSS FOOD POISION Other details as noted in HPI Other: GENERAL: Negative for fever, chills, weight change, anorexia, fatigue. ENT: Negative for ear pain, difficulty hearing, sore throat, nasal congestion, epistaxis. CARDIOVASCULAR: Negative for chest pain, palpitations, lower extremity swelling. PULMONARY: Negative for cough, dyspnea, wheezing, orthopnea, cyanosis. GASTROINTESTINAL: Positive for nausea and diarrhea. MUSCULOSKELETAL: Negative for joint pain, joint swelling, myalgias, back pain, neck pain. NEUROLOGICAL: Negative for headache, seizure, syncope, paresthesias, weakness. INTEGUMENTARY: Negative for erythema, rash, diaphoresis, laceration, ecchymosis. HEMATOLOGICAL: Negative for hemoptysis, hematemesis, hematochezia, hematuria. PSYCHIATRIC: Negative for hallucinations, suicidal ideation, homicidal ideation, anxiety, depression. ED Past Medical Hx - Past Medical History Hx HIV: Yes - Surgical History Past Surgical History?: No - Social History Smoking Status: Current Every Day Smoker Substance Use Type: None - Medications Home Medications: Home Medications Medication Instructions Recorded Confirmed Last Taken Type Albuterol Sulfate [Ventolin HFA] 2 puff IH Q4H PRN #1 hfa.aer.ad 12/04/16 Unknown Rx Cetirizine HCl [ZyrTEC] 10 mg PO QDAY #14 capsule 12/04/16 Unknown Rx Fluticasone [Flonase] 1 spray NS QDAY #1 bottle 12/04/16 Unknown Rx guaiFENesin DM [Robitussin Dm] 10 ml PO Q6HR PRN #200 udc 12/04/16 Unknown Rx levoFLOXacin [Levaquin] 750 mg PO QDAY #10 tablet 12/04/16 Unknown Rx Ibuprofen [Motrin] 800 mg PO Q8HR PRN #30 tablet 12/20/16 Unknown Rx Sulfamethoxazole/Trimethoprim 1 each PO BID #20 tablet 12/20/16 Unknown Rx [Bactrim DS TAB] Dicyclomine [Bentyl] 20 mg PO QID #20 tablet 06/13/21 Unknown Rx Ondansetron [Zofran Odt] 4 mg PO Q4H #20 tab.rapdis 06/13/21 Unknown Rx metroNIDAZOLE [Flagyl] 500 mg PO Q8HR 10 Days tablet 06/13/21 Unknown Rx ED Physical Exam - General Limitations: No Limitations - Other Other exam information: General: Awake and alert. No acute distress. Head: Atraumatic, normocephalic. Eyes: EOMI. Pupils are equal and round. Normal sclera and conjunctiva. ENT: Oral mucosa is moist. Normal pharyngeal exam. Neck: Supple. No lymphadenopathy. Pulmonary: No respiratory distress. Clear to auscultation bilaterally. Cardiac: Regular rate and rhythm. Pulses are palpable and equal bilaterally. No lower extremity cyanosis or edema. Skin: Warm and dry. No rashes. Abdomen: Soft, non-tender, non-protuberant. No guarding, rigidity, or rebound. Bowel sounds are normal. No organomegaly or masses noted. Back: Normal alignment. No CVA tenderness. Extremities: Symmetrical. Full range of motion intact. Neurological: Alert and oriented, appropriately interactive, no focal deficits. Psych: Cooperative. Appropriate mood and affect. Speech is evenly metered. Thoughts are logically construed. ED Course Vital Signs 06/12/21 06/12/21 06/13/21 22:10 23:04 00:03 Temperature 98.5 F 98.2 F Pulse Rate 86 83 Respiratory 18 18 18 Rate Blood Pressure 131/71 Blood Pressure 116/68 [Left] O2 Sat by Pulse 99 98 98 Oximetry ED Medical Decision Making - Lab Data Result diagrams: 06/12/21 22:35 06/12/21 22:35 - Medical Decision Making Differential diagnosis including but not limited to: clostridium difficile, toxic megacolon, diverticulitis, dehydration, electrolyte abnormality, foodborne illness On evaluation, patient remains stable. Repeat abdominal exam is benign. Patient is afebrile and hemodynamic stable without signs of peritonitis. Patient has underlying immunosuppression and is experiencing worsening diarrhea following a course of antibiotics. History and exam findings suggestive of C. difficile infection. Confirmatory testing is pending. Patient will be treated empirically with Flagyl per current UpToDate guidelines and prescribed appropriate symptomatic treatment. Referred to primary care provider for close outpatient follow-up. Patient expressed understanding and is agreeable to plan of care. Dietary modifications discussed. Strict return precautions provided. Repeat exam is unremarkable and benign. History, exam, diagnostic testing, and current condition do not suggest worrisome pathology to warrant further testing, continued ED treatment, admission, or surgical evaluation at this point. Given the low probability of a significant medical illness, it would be more likely to result in harm than benefit to perform further testing at this stage. Discussed findings, presumptive diagnosis, need for follow-up and specific signs/symptoms that should prompt immediate return to the emergency department. Instructions were explained in detail to the patient in addition to giving written discharge information. Patient expressed understanding and was given the opportunity to ask questions, all of which were satisfactorily answered prior to discharge home. Critical care attestation.: If time is entered above; I have spent that time in minutes in the direct care of this critically ill patient, excluding procedure time. ED Disposition Clinical Impression: Antibiotic-associated diarrhea, History of HIV infection Disposition: HOME / SELF CARE / HOMELESS Is pt being admited?: No Does the pt Need Aspirin: No Condition: Stable Instructions: Clostridioides Difficile Infection, [id number] Additional Instructions: Take Tylenol every 4 hours as needed for pain. Take Flagyl with food as directed until complete. Do not consume any alcohol while taking this medication. Increase your dietary intake of probiotic rich foods while taking this medication. Take Bentyl and Zofran as directed for nausea and intestinal discomfort. Rest. Drink plenty of fluids. Wash hands frequently to prevent disease transmission. Follow-up with primary care provider this week. Call tomorrow to schedule an appointment. See referral information below. Return to the emergency department immediately for new or worsening symptoms. Prescriptions: Dicyclomine [Bentyl] 20 mg PO QID #20 tablet metroNIDAZOLE [Flagyl] 500 mg PO Q8HR 10 Days tablet Ondansetron [Zofran Odt] 4 mg PO Q4H #20 tab.rapdis Referrals: [facility] MD ADOLFO [Primary Care Provider] - 3-5 Days Forms: Work/School Release Form(ED) Time of Disposition: 01:07
[2021-06-12 23:03] LABS: Basophils # (Auto) 0.1 K/mm3 (0.0-0.1); Eosinophils # (Auto) 0.1 K/mm3 (0.0-0.4); Eosinophils % (Auto) 0.7 % (0.0-4.3); Hematocrit 46.2 % (35.5-45.6); Hemoglobin 15.6 gm/dl (11.8-15.2); Lymphocytes # (Auto) 2.2 K/mm3 (1.2-5.4); Lymphocytes % (Auto) 22.5 % (13.4-35.0); Mean Corpuscular HGB Conc 34 % (32-34); Mean Corpuscular Volume 90 fl (84-94); Monocytes # (Auto) 0.6 K/mm3 (0.0-0.8); Monocytes % (Auto) 6.3 % (0.0-7.3); Platelet Count 260 K/mm3 (140-440); Red Blood Count 5.14 M/mm3 (3.65-5.03); Red Cell Distribution Width 13.2 % (13.2-15.2)
[2021-06-12 23:05] VITALS: BP 116/68
[2021-06-12 23:35] LABS: Alanine Aminotransferase 13 units/L (7-56); Albumin 4.4 g/dL (3.9-5); BUN/Creatinine Ratio 10; Blood Urea Nitrogen 12 mg/dL (9-20); Calcium 9.7 mg/dL (8.4-10.2); Hemolysis Index 9
== END 2021-06-13 01:22 | disposition home or self-care (01) ==
LOC: ED 21:53
DX: K52.1 Toxic gastroenteritis and colitis (principal); Z91.013 Allergy to seafood; F17.200 Nicotine dependence, unspecified, uncomplicated
CPT/HCPCS: 80053; 83690; 83735; 85025; 96360; 99283; J7030

== ENCOUNTER 2021-06-14 18:04 | Emergency (ER) | payer BC ==
--- NOTE | 2021-06-14 19:08 | Emergency Department Report ---
ED GI Bleed HPI - General Chief complaint: GI Bleed Stated complaint: BLACK STOOL PAIN IN BACK CHEST Time Seen by Provider: 06/14/21 18:14 Source: patient Mode of arrival: Ambulatory Limitations: No Limitations - History of Present Illness Initial comments: 30-year-old male with a past medical history of HIV presents to the ER today with complaints of having black stools which he noticed today. Patient states that he has been having diarrhea for the past 3 days. Patient states that he was seen here 2 days for his diarrhea. He states that he was discharged with a prescriptions to help his diarrhea but he just picked them up today and has not started to take them. Patient states that he still continues to have diarrhea today, it is mainly when he tries to eat or drink something he has diarrhea. He states that he has had 5 episodes of diarrhea so far today. He states that he did have Pepto-Bismol this morning and then later noticed a black stools. He states that he did not want to start the prescriptions that he was prescribed until he knew for sure that the black stools are related to blood. He reports no worsening abdominal pain, fever, chills, vomiting or any additional symptoms at this time. Patient states that his last viral load was undetectable. He states that his last CD4 count was about 700. He states that he is on Biktarvy and he has been compliant with his medication and follows up with his ID specialist at [place]. complaint: other (black stool ) -: This morning - Related Data Previous Rx's Medication Instructions Recorded Last Taken Type Albuterol Sulfate [Ventolin HFA] 2 puff IH Q4H PRN #1 hfa.aer.ad 12/04/16 Unknown Rx Cetirizine HCl [ZyrTEC] 10 mg PO QDAY #14 capsule 12/04/16 Unknown Rx Fluticasone [Flonase] 1 spray NS QDAY #1 bottle 12/04/16 Unknown Rx guaiFENesin DM [Robitussin Dm] 10 ml PO Q6HR PRN #200 udc 12/04/16 Unknown Rx levoFLOXacin [Levaquin] 750 mg PO QDAY #10 tablet 12/04/16 Unknown Rx Ibuprofen [Motrin] 800 mg PO Q8HR PRN #30 tablet 12/20/16 Unknown Rx Sulfamethoxazole/Trimethoprim 1 each PO BID #20 tablet 12/20/16 Unknown Rx [Bactrim DS TAB] Dicyclomine [Bentyl] 20 mg PO QID #20 tablet 06/13/21 Unknown Rx Ondansetron [Zofran Odt] 4 mg PO Q4H #20 tab.rapdis 06/13/21 Unknown Rx metroNIDAZOLE [Flagyl] 500 mg PO Q8HR 10 Days tablet 06/13/21 Unknown Rx Allergies Allergy/AdvReac Type Severity Reaction Status Date / Time shellfish derived AdvReac Unknown Verified 06/14/21 18:08 ED Review of Systems ROS: Stated complaint: BLACK STOOL PAIN IN BACK CHEST Other details as noted in HPI Comment: All other systems reviewed and negative Constitutional: denies: chills, fever Eyes: denies: eye pain, eye discharge, vision change ENT: denies: ear pain, throat pain Respiratory: denies: cough, shortness of breath, SOB with exertion, SOB at rest, wheezing Cardiovascular: denies: chest pain, palpitations Endocrine: no symptoms reported. denies: excessive sweating, flushing, intolerance to cold, intolerance to heat, increased hunger, increased thirst, increased urine, unexplained weight gain, unexplained weight loss Gastrointestinal: melena. denies: abdominal pain, nausea, vomiting, diarrhea, constipation, hematemesis, hematochezia Genitourinary: denies: urgency, dysuria, frequency, hematuria, discharge, testicular pain, testicular mass Musculoskeletal: denies: back pain, joint swelling, arthralgia Skin: denies: rash, lesions, change in color, change in hair/nails, pruritus Neurological: denies: headache, weakness, numbness, paresthesias, confusion, abnormal gait, vertigo Psychiatric: denies: anxiety, depression, auditory hallucinations, visual hallucinations, homicidal thoughts, suicidal thoughts Hematological/Lymphatic: denies: easy bleeding, easy bruising, swollen glands ED Past Medical Hx - Past Medical History Hx HIV: Yes - Surgical History Past Surgical History?: No - Social History Smoking Status: Current Every Day Smoker Substance Use Type: None - Medications Home Medications: Home Medications Medication Instructions Recorded Confirmed Last Taken Type Albuterol Sulfate [Ventolin HFA] 2 puff IH Q4H PRN #1 hfa.aer.ad 12/04/16 Unknown Rx Cetirizine HCl [ZyrTEC] 10 mg PO QDAY #14 capsule 12/04/16 Unknown Rx Fluticasone [Flonase] 1 spray NS QDAY #1 bottle 12/04/16 Unknown Rx guaiFENesin DM [Robitussin Dm] 10 ml PO Q6HR PRN #200 udc 12/04/16 Unknown Rx levoFLOXacin [Levaquin] 750 mg PO QDAY #10 tablet 12/04/16 Unknown Rx Ibuprofen [Motrin] 800 mg PO Q8HR PRN #30 tablet 12/20/16 Unknown Rx Sulfamethoxazole/Trimethoprim 1 each PO BID #20 tablet 12/20/16 Unknown Rx [Bactrim DS TAB] Dicyclomine [Bentyl] 20 mg PO QID #20 tablet 06/13/21 Unknown Rx Ondansetron [Zofran Odt] 4 mg PO Q4H #20 tab.rapdis 06/13/21 Unknown Rx metroNIDAZOLE [Flagyl] 500 mg PO Q8HR 10 Days tablet 06/13/21 Unknown Rx ED Physical Exam - General Limitations: No Limitations General appearance: alert, in no apparent distress - Head Head exam: Present: atraumatic, normocephalic, normal inspection - Eye Eye exam: Present: normal appearance, PERRL, EOMI Pupils: Present: normal accommodation - ENT ENT exam: Present: normal exam, mucous membranes moist - Neck Neck exam: Present: normal inspection, full ROM - Respiratory Respiratory exam: Absent: respiratory distress - Cardiovascular Cardiovascular Exam: Present: regular rate - GI/Abdominal GI/Abdominal exam: Present: soft. Absent: distended, tenderness, guarding, rebound - Neurological Exam Neurological exam: Present: alert, oriented X3, CN II-XII intact, normal gait - Psychiatric Psychiatric exam: Present: normal affect, normal mood - Skin Skin exam: Present: intact ED Course Vital Signs 06/14/21 18:10 Temperature 99.0 F Pulse Rate 99 H Respiratory 16 Rate Blood Pressure 110/72 O2 Sat by Pulse 99 Oximetry ED Medical Decision Making - Medical Decision Making Bedside Hemoccult negative for blood. Patient is well-appearing, nontoxic and not in any acute distress. He has a nonsurgical abdominal exam. His vital signs are stable. Patient neurologically intact with a normal gait. He has had no diarrhea during stay. At this time there is no indication for any additional testing. Recommend that he start taking the Flagyl that he was prescribed and follow-up with his ID specialist or PCP. Patient expressed understanding of all instructions and agree with plan. Patient stable at time of discharge. Critical care attestation.: If time is entered above; I have spent that time in minutes in the direct care of this critically ill patient, excluding procedure time. ED Disposition Clinical Impression: Diarrhea, Abnormal stool color Disposition: 01 HOME / SELF CARE / HOMELESS Is pt being admited?: No Does the pt Need Aspirin: No Condition: Stable Instructions: Food Choices to Help Relieve Diarrhea, Adult, Diarrhea, Adult, [id number] Additional Instructions: I recommend that you start the Flagyl, as prescribed to you when he was seen here 2 days ago. You can take the Bentyl as needed for any abdominal cramping and Zofran as needed for nausea or vomiting.The peptobismol is likely will cause your stool to turn black. You can continue taking it if needed. Recommend that you drink lots of water. Follow-up with your PCP and your ID specialist. Return to the ER if your symptoms changes or worsens in any way. Referrals: PRIMARY CARE, [Referring] - 3-5 Days Forms: Accompanied Note Time of Disposition: 19:46 Print Language: PRYDEINIG
[2021-06-14 20:14] VITALS: BP 111/73
== END 2021-06-14 20:14 | disposition home or self-care (01) ==
LOC: ED 18:04
DX: R19.7 Diarrhea, unspecified (principal); R19.5 Other fecal abnormalities; Z21 Asymptomatic human immunodeficiency virus [HIV] infection status; F17.200 Nicotine dependence, unspecified, uncomplicated; Z91.013 Allergy to seafood
CPT/HCPCS: 82271; 99283

== ENCOUNTER 2021-07-22 07:29 | Emergency (ER) | payer BC ==
[2021-07-22 07:38] VITALS: BP 116/64
--- NOTE | 2021-07-22 08:14 | Emergency Department Report ---
ED General Adult HPI - General Chief complaint: Chest Pain Stated complaint: chest pain Time Seen by Provider: 07/22/21 07:50 Source: patient Mode of arrival: Ambulatory Limitations: No Limitations - History of Present Illness Initial comments: 30-year-old -I[place] male patient presents with complaints of intermittent bilateral chest pains x2 weeks. He states the pain appears to move around and radiates into his back at times and sometimes is in his legs. Past medical history includes HIV, compliant on ART. He also reports that he was andra gnosed with Covid 19 on 06/29/2021. He denies having had any complications with Covid or hospitalizations thus far. Patient also denies any hemoptysis, continued cough, swelling in the legs, recent long travel/surgeries, or history of DVT/PE/cancer. He reports mild shortness of breath and states he feels like he has had some wheezing. Patient states symptoms seem to worsen when he smokes cigarettes. Severity scale (0 -10): 7 - Related Data Previous Rx's Medication Instructions Recorded Last Taken Type Albuterol Sulfate [Ventolin HFA] 2 puff IH Q4H PRN #1 hfa.aer.ad 12/04/16 Unknown Rx Cetirizine HCl [ZyrTEC] 10 mg PO QDAY #14 capsule 12/04/16 Unknown Rx Fluticasone [Flonase] 1 spray NS QDAY #1 bottle 12/04/16 Unknown Rx guaiFENesin DM [Robitussin Dm] 10 ml PO Q6HR PRN #200 udc 12/04/16 Unknown Rx levoFLOXacin [Levaquin] 750 mg PO QDAY #10 tablet 12/04/16 Unknown Rx Ibuprofen [Motrin] 800 mg PO Q8HR PRN #30 tablet 12/20/16 Unknown Rx Sulfamethoxazole/Trimethoprim 1 each PO BID #20 tablet 12/20/16 Unknown Rx [Bactrim DS TAB] Dicyclomine [Bentyl] 20 mg PO QID #20 tablet 06/13/21 Unknown Rx Ondansetron [Zofran Odt] 4 mg PO Q4H #20 tab.rapdis 06/13/21 Unknown Rx metroNIDAZOLE [Flagyl] 500 mg PO Q8HR 10 Days tablet 06/13/21 Unknown Rx Allergies Allergy/AdvReac Type Severity Reaction Status Date / Time shellfish derived AdvReac Unknown Verified 06/14/21 18:08 ED Review of Systems ROS: Stated complaint: chest pain Other details as noted in HPI Constitutional: denies: chills, diaphoresis, fever, malaise, weakness Respiratory: shortness of breath, wheezing. denies: cough Cardiovascular: chest pain. denies: palpitations, edema, syncope Gastrointestinal: denies: abdominal pain, nausea, vomiting Musculoskeletal: as per HPI Neurological: denies: headache Hematological/Lymphatic: denies: swollen glands ED Past Medical Hx - Past Medical History Hx HIV: Yes - Social History Smoking Status: Current Every Day Smoker Substance Use Type: None - Medications Home Medications: Home Medications Medication Instructions Recorded Confirmed Last Taken Type Albuterol Sulfate [Ventolin HFA] 2 puff IH Q4H PRN #1 hfa.aer.ad 12/04/16 Unknown Rx Cetirizine HCl [ZyrTEC] 10 mg PO QDAY #14 capsule 12/04/16 Unknown Rx Fluticasone [Flonase] 1 spray NS QDAY #1 bottle 12/04/16 Unknown Rx guaiFENesin DM [Robitussin Dm] 10 ml PO Q6HR PRN #200 udc 12/04/16 Unknown Rx levoFLOXacin [Levaquin] 750 mg PO QDAY #10 tablet 12/04/16 Unknown Rx Ibuprofen [Motrin] 800 mg PO Q8HR PRN #30 tablet 12/20/16 Unknown Rx Sulfamethoxazole/Trimethoprim 1 each PO BID #20 tablet 12/20/16 Unknown Rx [Bactrim DS TAB] Dicyclomine [Bentyl] 20 mg PO QID #20 tablet 06/13/21 Unknown Rx Ondansetron [Zofran Odt] 4 mg PO Q4H #20 tab.rapdis 06/13/21 Unknown Rx metroNIDAZOLE [Flagyl] 500 mg PO Q8HR 10 Days tablet 06/13/21 Unknown Rx ED Physical Exam - General Limitations: No Limitations General appearance: alert, in no apparent distress - Head Head exam: Present: atraumatic, normocephalic - Eye Eye exam: Present: normal appearance. Absent: scleral icterus - Neck Neck exam: Present: normal inspection - Respiratory Respiratory exam: Present: normal lung sounds bilaterally, chest wall tenderness (bilateral diffuse, mild). Absent: respiratory distress - Cardiovascular Cardiovascular Exam: Present: regular rate, normal rhythm - GI/Abdominal GI/Abdominal exam: Present: soft. Absent: tenderness - Extremities Exam Extremities exam: Absent: calf tenderness (No swelling or pain noted bilaterally) - Back Exam Back exam: Present: full ROM. Absent: paraspinal tenderness, vertebral tenderness - Neurological Exam Neurological exam: Present: alert, oriented X3, normal gait - Psychiatric Psychiatric exam: Present: normal affect, normal mood - Skin Skin exam: Present: warm, dry, intact, normal color. Absent: rash ED Course Vital Signs 07/22/21 07:38 Temperature 98.5 F Pulse Rate 86 Respiratory 14 Rate Blood Pressure 116/64 [Right] O2 Sat by Pulse 100 Oximetry ED Medical Decision Making - Lab Data Result diagrams: 07/22/21 07:57 07/22/21 07:57 Lab Results 07/22/21 07/22/21 07/22/21 Range/Units 07:57 07:57 08:26 WBC 7.8 (4.5-11.0) K/mm3 RBC 4.99 (3.65-5.03) M/mm3 Hgb 14.6 (11.8-15.2) gm/dl Hct 44.4 (35.5-45.6) % MCV 89 (84-94) fl MCH 29 (28-32) pg MCHC 33 (32-34) % RDW 13.5 (13.2-15.2) % Plt Count 232 (140-440) K/mm3 Lymph % (Auto) 28.1 (13.4-35.0) % Emery % (Auto) 7.6 H (0.0-7.3) % Eos % (Auto) 0.5 (0.0-4.3) % Baso % (Auto) 0.3 (0.0-1.8) % Lymph # (Auto) 2.2 (1.2-5.4) K/mm3 Emery # (Auto) 0.6 (0.0-0.8) K/mm3 Eos # (Auto) 0.0 (0.0-0.4) K/mm3 Baso # (Auto) 0.0 (0.0-0.1) K/mm3 Seg Neutrophils % 63.5 (40.0-70.0) % Seg Neutrophils # 4.9 (1.8-7.7) K/mm3 D-Dimer < 135.00 (0-234) ng/mlDDU Sodium 139 (137-145) mmol/L Potassium 3.7 (3.6-5.0) mmol/L Chloride 99.6 (98-107) mmol/L Carbon Dioxide 25 (22-30) mmol/L Anion Gap 18 mmol/L BUN 12 (9-20) mg/dL Creatinine 1.0 (0.8-1.3) mg/dL Estimated GFR > 60 ml/min BUN/Creatinine Ratio 12 % Glucose 95 (75-100) mg/dL Calcium 9.1 (8.4-10.2) mg/dL Total Bilirubin 0.30 (0.1-1.2) mg/dL AST 57 H (5-40) units/L ALT 101 H (7-56) units/L Alkaline Phosphatase 76 (35-129) units/L Troponin T < 0.010 (0.00-0.029) ng/mL Total Protein 7.7 (6.3-8.2) g/dL Albumin 4.4 (3.9-5) g/dL Albumin/Globulin Ratio 1.3 % - EKG Data EKG shows normal: sinus rhythm Rate: normal - EKG Data Interpretation: other (Left atrial enlargement) - Radiology Data Radiology results: report reviewed CHEST 2 VIEWS INDICATION / CLINICAL INFORMATION: chest pain. COMPARISON: 12/04/2016 FINDINGS: SUPPORT DEVICES: None. HEART / MEDIASTINUM: No significant abnormality. LUNGS / PLEURA: No significant pulmonary or pleural abnormality. No pneumothorax. ADDITIONAL FINDINGS: No significant additional findings. IMPRESSION: 1. No acute findings. - Medical Decision Making 30-year-old -[place] male patient presents with complaints of intermittent bilateral chest pains x2 weeks. He states the pain appears to move around and radiates into his back at times and sometimes is in his legs. Past medical history includes HIV, compliant on ART. He also reports that he was diagnosed with Covid 19 on 06/29/2021. He denies having had any complications with Covid or hospitalizations thus far. Patient also denies any hemoptysis, continued cough, swelling in the legs, recent long travel/surgeries, or history of DVT/PE/cancer. He reports mild shortness of breath and states he feels like he has had some wheezing. Patient states symptoms seem to worsen when he smokes cigarettes. Labs and x-ray are normal. Suspect lingering COVID-19 symptoms aggravated by smoking. Recommend patient follows up with his PCP in 3 to 5 days. Arms are within normal limits, patient is well-appearing, his vitals are within normal limits, he is stable for discharge home. Discussed importance of smoking cessation. Discussed detail signs and symptoms that should prompt immediate return to the ED with patient who verbalizes understanding peer Critical care attestation.: If time is entered above; I have spent that time in minutes in the direct care of this critically ill patient, excluding procedure time. ED Disposition Clinical Impression: Other chest pain Disposition: HOME / SELF CARE / HOMELESS Is pt being admited?: No Condition: Stable Instructions: Nonspecific Chest Pain, Adult, [id number] Referrals: PRIMARY CARE,MD [Primary Care Provider] - 3-5 Days Forms: Work/School Release Form(ED) Heart Score - HEART Score History: Slightly suspicious EKG: Normal Age: < 45 Risk factors: 1-2 risk factors Troponin: < normal limit HEART Score: 1 - EKG Read Time Time EKG Completed: 08:00 EKG Read Time: 08:05
[2021-07-22 08:22] LABS: Basophils % (Auto) 0.3 % (0.0-1.8); Eosinophils % (Auto) 0.5 % (0.0-4.3); Hematocrit 44.4 % (35.5-45.6); Hemoglobin 14.6 gm/dl (11.8-15.2); Lymphocytes # (Auto) 2.2 K/mm3 (1.2-5.4); Lymphocytes % (Auto) 28.1 % (13.4-35.0); Mean Corpuscular HGB Conc 33 % (32-34); Mean Corpuscular Volume 89 fl (84-94); Monocytes # (Auto) 0.6 K/mm3 (0.0-0.8); Monocytes % (Auto) 7.6 % (0.0-7.3); Platelet Count 232 K/mm3 (140-440); Red Blood Count 4.99 M/mm3 (3.65-5.03); Red Cell Distribution Width 13.5 % (13.2-15.2)
--- NOTE | 2021-07-22 08:23 | XRay Report ---
CHEST 2 VIEWS INDICATION / CLINICAL INFORMATION: chest pain. COMPARISON: 12/04/2016 FINDINGS: SUPPORT DEVICES: None. HEART / MEDIASTINUM: No significant abnormality. LUNGS / PLEURA: No significant pulmonary or pleural abnormality. No pneumothorax. ADDITIONAL FINDINGS: No significant additional findings. IMPRESSION: 1. No acute findings. Signer Name: Aniceto Martinez MD Signed: 07/22/2021 8:18 AM Workstation Name: [id number]
[2021-07-22 08:46] LABS: Alanine Aminotransferase 101 units/L (7-56); Albumin 4.4 g/dL (3.9-5); BUN/Creatinine Ratio 12; Blood Urea Nitrogen 12 mg/dL (9-20); Calcium 9.1 mg/dL (8.4-10.2); Hemolysis Index 66
== END 2021-07-22 10:31 | disposition home or self-care (01) ==
LOC: ED 07:29
DX: R07.89 Other chest pain (principal); F17.200 Nicotine dependence, unspecified, uncomplicated; Z91.013 Allergy to seafood
CPT/HCPCS: 36415; 71046; 80053; 84484; 85025; 85379; 93005; 99283

== ENCOUNTER 2021-09-15 07:54 | Emergency (ER) | payer BC ==
[2021-09-15 08:05] VITALS: BP 150/73
--- NOTE | 2021-09-15 09:11 | Emergency Department Report ---
ED ENT HPI - General Chief complaint: Sore Throat Stated complaint: SORE THROAT Time Seen by Provider: 09/15/21 08:45 Source: patient Mode of arrival: Ambulatory Limitations: No Limitations - History of Present Illness Initial comments: 31-year-old -Spanish male presents to the emergency room complaining of a sore throat for 2 days. Patient denies any fever chills no nausea no vomiting. Patient states he has a history of acid reflux and thought that it could be the GERD that is causing the discomfort. Patient states he read the bottle of the Nexium and it said if you are having difficulty to swallow then you need to proceed to the emergency room. Patient is able to speak in complete sentences is able to control his secretions. Patient is coming in requesting STD evaluation Onset/Timin -: days(s) Location: throat Severity: moderate Severity scale (0 -10): 4 Quality: sharp Consistency: constant Improves with: none Worsens with: none Associated Symptoms: pain with swallowing, sore throat. denies: fever, cough - Related Data Previous Rx's Medication Instructions Recorded Last Taken Type Albuterol Sulfate [Ventolin HFA] 2 puff IH Q4H PRN #1 hfa.aer.ad 12/04/16 Unknown Rx Cetirizine HCl [ZyrTEC] 10 mg PO QDAY #14 capsule 12/04/16 Unknown Rx Fluticasone [Flonase] 1 spray NS QDAY #1 bottle 12/04/16 Unknown Rx guaiFENesin DM [Robitussin Dm] 10 ml PO Q6HR PRN #200 udc 12/04/16 Unknown Rx levoFLOXacin [Levaquin] 750 mg PO QDAY #10 tablet 12/04/16 Unknown Rx Ibuprofen [Motrin] 800 mg PO Q8HR PRN #30 tablet 12/20/16 Unknown Rx Sulfamethoxazole/Trimethoprim 1 each PO BID #20 tablet 12/20/16 Unknown Rx [Bactrim DS TAB] Dicyclomine [Bentyl] 20 mg PO QID #20 tablet 06/13/21 Unknown Rx Ondansetron [Zofran Odt] 4 mg PO Q4H #20 tab.rapdis 06/13/21 Unknown Rx metroNIDAZOLE [Flagyl] 500 mg PO Q8HR 10 Days tablet 06/13/21 Unknown Rx Allergies Allergy/AdvReac Type Severity Reaction Status Date / Time shellfish derived AdvReac Unknown Verified 09/15/21 08:05 ED Dental HPI - General Chief complaint: Sore Throat Stated complaint: SORE THROAT Time Seen by Provider: 09/15/21 08:45 Source: patient Mode of arrival: Ambulatory Limitations: No Limitations - Related Data Previous Rx's Medication Instructions Recorded Last Taken Type Albuterol Sulfate [Ventolin HFA] 2 puff IH Q4H PRN #1 hfa.aer.ad 12/04/16 Unknown Rx Cetirizine HCl [ZyrTEC] 10 mg PO QDAY #14 capsule 12/04/16 Unknown Rx Fluticasone [Flonase] 1 spray NS QDAY #1 bottle 12/04/16 Unknown Rx guaiFENesin DM [Robitussin Dm] 10 ml PO Q6HR PRN #200 udc 12/04/16 Unknown Rx levoFLOXacin [Levaquin] 750 mg PO QDAY #10 tablet 12/04/16 Unknown Rx Ibuprofen [Motrin] 800 mg PO Q8HR PRN #30 tablet 12/20/16 Unknown Rx Sulfamethoxazole/Trimethoprim 1 each PO BID #20 tablet 12/20/16 Unknown Rx [Bactrim DS TAB] Dicyclomine [Bentyl] 20 mg PO QID #20 tablet 06/13/21 Unknown Rx Ondansetron [Zofran Odt] 4 mg PO Q4H #20 tab.rapdis 06/13/21 Unknown Rx metroNIDAZOLE [Flagyl] 500 mg PO Q8HR 10 Days tablet 06/13/21 Unknown Rx Allergies Allergy/AdvReac Type Severity Reaction Status Date / Time shellfish derived AdvReac Unknown Verified 09/15/21 08:05 ED Review of Systems ROS: Stated complaint: SORE THROAT Other details as noted in HPI Comment: All other systems reviewed and negative ED Past Medical Hx - Past Medical History Hx HIV: Yes - Social History Smoking Status: Current Every Day Smoker Substance Use Type: None - Medications Home Medications: Home Medications Medication Instructions Recorded Confirmed Last Taken Type Albuterol Sulfate [Ventolin HFA] 2 puff IH Q4H PRN #1 hfa.aer.ad 12/04/16 Unknown Rx Cetirizine HCl [ZyrTEC] 10 mg PO QDAY #14 capsule 12/04/16 Unknown Rx Fluticasone [Flonase] 1 spray NS QDAY #1 bottle 12/04/16 Unknown Rx guaiFENesin DM [Robitussin Dm] 10 ml PO Q6HR PRN #200 udc 12/04/16 Unknown Rx levoFLOXacin [Levaquin] 750 mg PO QDAY #10 tablet 12/04/16 Unknown Rx Ibuprofen [Motrin] 800 mg PO Q8HR PRN #30 tablet 12/20/16 Unknown Rx Sulfamethoxazole/Trimethoprim 1 each PO BID #20 tablet 12/20/16 Unknown Rx [Bactrim DS TAB] Dicyclomine [Bentyl] 20 mg PO QID #20 tablet 06/13/21 Unknown Rx Ondansetron [Zofran Odt] 4 mg PO Q4H #20 tab.rapdis 06/13/21 Unknown Rx metroNIDAZOLE [Flagyl] 500 mg PO Q8HR 10 Days tablet 06/13/21 Unknown Rx ED Physical Exam - General Limitations: No Limitations General appearance: alert, in no apparent distress, other (Able to speak in complete sentences able to control his secretions) - Head Head exam: Present: atraumatic, normocephalic - Eye Eye exam: Present: normal appearance - ENT ENT exam: Present: mucous membranes moist, normal external ear exam - Neck Neck exam: Present: normal inspection, full ROM - Respiratory Respiratory exam: Absent: respiratory distress, accessory muscle use - Cardiovascular Cardiovascular Exam: Present: regular rate - Extremities Exam Extremities exam: Present: normal inspection, full ROM - Back Exam Back exam: Present: normal inspection, full ROM - Neurological Exam Neurological exam: Present: alert, oriented X3, normal gait - Psychiatric Psychiatric exam: Present: normal affect, normal mood - Skin Skin exam: Present: warm, dry, intact, normal color. Absent: rash ED Course Vital Signs 09/15/21 08:03 Temperature 99.3 F Pulse Rate 96 H Respiratory 18 Rate Blood Pressure 150/73 [Left] O2 Sat by Pulse 99 Oximetry ED Medical Decision Making - Medical Decision Making 31-year-old -Spanish male presents to the emergency room complaining of a sore throat for 2 days. Patient denies any fever chills no nausea no vomiting. Patient states he has a history of acid reflux and thought that it could be the GERD that is causing the discomfort. Patient states he read the bottle of the Nexium and it said if you are having difficulty to swallow then you need to proceed to the emergency room. Patient is able to speak in complete sentences is able to control his secretions. Patient is coming in requesting STD evaluation. Patient is very argumentative all and being very demanding on what he wants to have done. Patient then refused to open his mouth to be evaluated. Patient left AGAINST MEDICAL ADVICE. Critical care attestation.: If time is entered above; I have spent that time in minutes in the direct care of this critically ill patient, excluding procedure time. ED Disposition Condition: Stable
== END 2021-09-16 20:01 | disposition left against medical advice (07) ==
LOC: ED 07:54
DX: J02.9 Acute pharyngitis, unspecified (principal); Z21 Asymptomatic human immunodeficiency virus [HIV] infection status; F17.200 Nicotine dependence, unspecified, uncomplicated; Z91.013 Allergy to seafood
CPT/HCPCS: 99281